=== PATIENT | male | born 1995 | race Caucasian/White ===

== ENCOUNTER 2017-09-04 20:36 | Emergency (ER) | payer BC, OTHER ==
[~2017-09-04] VITALS: Ht 190.5 cm; Wt 127.9 kg
[2017-09-04 20:57] LABS: BASOPHILS % (AUTO) 0 % (0-10); EOSINOPHILS % (AUTO) 0 % (0-10); HEMATOCRIT 43 % (40-54); HEMOGLOBIN 15.3 G/DL (13.3-17.7); LYMPHOCYTES # (AUTO) 2.2 X 10^3 (1.0-4.0); LYMPHOCYTES % (AUTO) 24 % (12-44); MEAN CORPUSCULAR HEMOGLOBIN 29 PG (25-34); MEAN CORPUSCULAR HGB CONC 36 G/DL (32-36); MEAN CORPUSCULAR VOLUME 82 FL (80-99); MEAN PLATELET VOLUME 10.4 FL (7.4-10.4); MONOCYTES # (AUTO) 0.6 X 10^3 (0.0-1.0); MONOCYTES % (AUTO) 7 % (0-12); NEUTROPHILS # (AUTO) 6.3 X 10^3 (1.8-7.8); NEUTROPHILS % (AUTO) 69 % (42-75); PLATELET COUNT 354 10^3/uL (130-400); RED BLOOD COUNT 5.29 10^6/uL (4.35-5.85); WHITE BLOOD COUNT 9.2 10^3/uL (4.3-11.0)
--- NOTE | 2017-09-04 21:02 | ED Neurological Problem ---
General Chief Complaint: Neurological Problems Stated Complaint: RT SIDE NUMBNESS OF FACE Nursing Triage Note: right sided facial weakness/drooping. Nursing Sepsis Screen: No Definite Risk Source: patient History of Present Illness Time seen by provider: 20:50 Initial Comments PT STATES WHEN HE WOKE UP YESTERDAY MORNING, HE HAD SOME NUMBNESS AND TINGLING TO HIS MOUTH THE DAY WENT ON, HE NOTICED HIS RIGHT EYE WOULD NOT CLOSE AND HAS HAD SOME DROPPING OF THE RIGHT SIDE OF HIS FACE SYMPTOMS CONTINUE TODAY NO PAIN STATES HE DOES NOT HAVE ANY NUMBNESS NO VISION CHANGES NO PROBLEMS SWALLOWING/EATING/CHEWING NO HEADACHE NO EAR PAIN OR SYMPTOMS NO PROBLEMS WITH ARMS/ LEGS OR ANY OTHER PART OF BODY NO FEVER OR RECENT ILLNESS/URI SYMPTOMS NO HISTORY OF SIMILAR PT IS [employer] ST[employer] Allergies and Home Medications Allergies Coded Allergies: No Known Drug Allergies (Unverified , 09/04/17) Home Medications No Active Prescriptions or Reported Meds Constitutional: no symptoms reported Eyes: See HPI, Denies Blurred Vision, Denies Pain, Denies Vision Changes Ears, Nose, Mouth, Throat: see HPI Respiratory: no symptoms reported Cardiovascular: no symptoms reported Gastrointestinal: no symptoms reported Genitourinary: no symptoms reported Musculoskeletal: no symptoms reported Skin: no symptoms reported Psychiatric/Neurological: See HPI, Denies Cognitive Dysfunction, Denies Headache, Denies Numbness, Tingling, Other (RIGHT FACIAL DROOP) Endocrine: No Symptoms Reported Hematologic/Lymphatic: No Symptoms Reported Past [id number]-Jyplvo-Crxont Hx Patient Social History Alcohol Use: Occasionally Uses Number of Drinks Today: 0 Alcohol Beverage of Choice: Beer Recreational Drug Use: No Smoking Status: Never a Smoker Type Used: Smokeless Tobacco 2nd Hand Smoke Exposure: No Recent Foreign Travel: No Contact w/Someone Who Travel: No Recent Infectious Disease Expo: No Recent Hopitalizations: No Immunizations Up To Date Tetanus Booster (TDap): Unknown PED Vaccines UTD: Yes Seasonal Allergies Seasonal Allergies: No Surgeries History of Surgeries: Yes (BILATERAL KNEE SURGERY, LEFT SHOULDER SURGERY) Surgeries: Orthopedic Respiratory History of Respiratory Disorde: No Cardiovascular History of Cardiac Disorders: No Neurological History of Neurological Disord: No Genitourinary History of Genitourinary Disor: No Gastrointestinal History of Gastrointestinal Di: No Musculoskeletal History of Musculoskeletal Dis: No Endocrine History of Endocrine Disorders: No HEENT History of HEENT Disorders: No Cancer History of Cancer: No Psychosocial History of Psychiatric Problem: No Integumentary History of Skin or Integumenta: No Blood Transfusions History of Blood Disorders: No Adverse Reaction to a Blood Tr: No Family Medical History Other HOSPITALIZED AT AGE 4 FOR SNAKEBITE Physical Exam Vital Signs Vital Sign - Last 12Hours 09/04/17 20:45 Temp 98.1 Pulse 87 Resp 16 B/P (MAP) 170/113 (132) Pulse Ox 98 O2 Delivery Room Air Capillary Refill : Less Than 3 Seconds General Appearance: WD/WN, no apparent distress HEENT: PERRL/EOMI, TMs normal, pharynx normal, other (RIGHT FACIAL DROOP, AND CANNOT COMPLETELY CLOSE RIGHT EYE, TONGUE MIDLINE) Neck: non-tender, full range of motion, supple, normal inspection, No carotid bruit Respiratory: normal breath sounds, no respiratory distress, no accessory muscle use Cardiovascular: regular rate, rhythm, no murmur Gastrointestinal: normal bowel sounds Extremities: normal range of motion, non-tender, normal inspection, no pedal edema, no calf tenderness, normal capillary refill Neurologic/Psychiatric: alert, normal mood/affect, oriented x 3, No abnormal cerebellar tests, No abnormal gait, No aphasia, No EOM palsy, facial droop ( RIGHT ), No sensory deficit Crainal Nerves: normal hearing, normal speech, PERRL Coordination/Gait: normal finger to nose, normal gait, negative Romberg's sign Motor/Sensory: no sensory deficit, no pronator drift Skin: normal color, warm/dry, No rash Progress/Results/Core Measures Results/Orders Lab Results Laboratory Tests Test 09/04/17 20:46 Range/Units White Blood Count 9.2 4.3-11.0 10^3/uL Red Blood Count 5.29 4.35-5.85 10^6/uL Hemoglobin 15.3 13.3-17.7 G/DL Hematocrit 43 40-54 % Mean Corpuscular Volume 82 80-99 FL Mean Corpuscular Hemoglobin 29 25-34 PG Mean Corpuscular Hemoglobin Concent 36 32-36 G/DL Red Cell Distribution Width 12.0 10.0-14.5 % Platelet Count 354 130-400 10^3/uL Mean Platelet Volume 10.4 7.4-10.4 FL Neutrophils (%) (Auto) 69 42-75 % Lymphocytes (%) (Auto) 24 12-44 % Monocytes (%) (Auto) 7 0-12 % Eosinophils (%) (Auto) 0 0-10 % Basophils (%) (Auto) 0 0-10 % Neutrophils # (Auto) 6.3 1.8-7.8 X 10^3 Lymphocytes # (Auto) 2.2 1.0-4.0 X 10^3 Monocytes # (Auto) 0.6 0.0-1.0 X 10^3 Eosinophils # (Auto) 0.0 0.0-0.3 10^3/uL Basophils # (Auto) 0.0 0.0-0.1 10^3/uL Sodium Level 141 135-145 MMOL/L Potassium Level 3.8 3.6-5.0 MMOL/L Chloride Level 103 98-107 MMOL/L Carbon Dioxide Level 26 21-32 MMOL/L Anion Gap 12 5-14 MMOL/L Blood Urea Nitrogen 15 7-18 MG/DL Creatinine 1.15 0.60-1.30 MG/DL Estimat Glomerular Filtration Rate > 60 BUN/Creatinine Ratio 13 Glucose Level 122 H 70-105 MG/DL Calcium Level 9.6 8.5-10.1 MG/DL Total Bilirubin 0.5 0.1-1.0 MG/DL Aspartate Amino Transf (AST/SGOT) 24 5-34 U/L Alanine Aminotransferase (ALT/SGPT) 42 0-55 U/L Alkaline Phosphatase 98 40-136 U/L Total Protein 8.3 H 6.4-8.2 GM/DL Albumin 4.8 H 3.2-4.5 GM/DL My Orders Orders - GARY LINDQUIST DO Ct Head Wo-R/O Stroke (09/04/17 20:50) Cbc With Automated Diff (09/04/17 20:50) Comprehensive Metabolic Panel (09/04/17 20:50) Erythrocyte Sedimentation Rate (09/04/17 20:50) Saline Lock/Iv-Start (09/04/17 20:56) Methylprednisolone Sod Succ (Solu-Medrol (09/04/17 21:30) Acyclovir Capsule/Tablet (Zovirax Caps (09/04/17 21:30) Vital Signs/I&O Vital Sign - Last 12Hours 09/04/17 20:45 Temp 98.1 Pulse 87 Resp 16 B/P (MAP) 170/113 (132) Pulse Ox 98 O2 Delivery Room Air Blood Pressure Mean: [address] HEAD--NO ACUTE PROCESS, PER RADIOLOGIST REPORT @ 1830 Reviewed: Reviewed by Me Departure Impression Impression: Primary Impression: Right-sided Cope's palsy Disposition: HOME, SELF-CARE Condition: Stable Departure-Patient Inst. Referrals: NATO GALVAN MD Patient Instructions: Cope's Palsy (DC) Add. Discharge Instructions: ARTIFICIAL TEARS EVERY COUPLE OF HOURS CAREFUL WITH CHEWING TO AVOID BITING YOUR TONGUE OR CHEEK FOLLOW UP WITH [facility] ON THURSDAY FOR FURTHER CARE RETURN TO ER IF SYMPTOMS WORSEN All discharge instructions reviewed with patient and/or family. Voiced understanding. Scripts Valacyclovir HCl (Valtrex) 1,000 Mg Tablet 1000 MG PO TID, #21 TAB Prov: GARY LINDQUIST DO 09/04/17 Methylprednisolone (Medrol) 4 Mg Tab.ds.pk 4 MG PO UD, #1 PKG Prov: GARY LINDQUIST DO 09/04/17 GARY LINDQUIST DO Sep 04, 2017 21:01
--- NOTE | 2017-09-04 21:06 | Diagnostic Imaging Report ---
INDICATION: Right-sided facial numbness and droop. EXAMINATION: Noncontrast brain CT was performed. FINDINGS: There were no extra-axial fluid collections. No intracranial hemorrhage. No intracranial mass or mass effect. No midline shift. The ventricles are normal in size and position. There are no focal parenchymal abnormalities in the brain. Calvarial windows are unremarkable. IMPRESSION: Negative noncontrast brain CT. Dictated by: Dictated on workstation # [id number]
[2017-09-04 21:11] LABS: ALANINE AMINOTRANSFERASE 42 U/L (0-55); ALBUMIN 4.8 GM/DL (3.2-4.5); ALKALINE PHOSPHATASE 98 U/L (40-136); BILIRUBIN,TOTAL 0.5 MG/DL (0.1-1.0); BUN/CREATININE RATIO 13; CALCIUM 9.6 MG/DL (8.5-10.1); CARBON DIOXIDE 26 MMOL/L (21-32); CHLORIDE 103 MMOL/L (98-107); CREATININE SERUM 1.15 MG/DL (0.60-1.30); GFR ESTIMATED > 60; GLUCOSE 122 MG/DL (70-105); POTASSIUM 3.8 MMOL/L (3.6-5.0); SODIUM 141 MMOL/L (135-145); TOTAL PROTEIN 8.3 GM/DL (6.4-8.2)
[2017-09-04] MEDS ORDERED: VALA10004 PO (21:28)
[2017-09-04] MEDS ORDERED: METH4TAB PO (21:28)
[2017-09-04] MEDS ORDERED: ACYCLOVIR 400 MG TABLET (ZOVIRAX) PO SCH (21:30)
[2017-09-04] MEDS ORDERED: methylPREDNISolone 125 MG (Solu-MEDROL) VIAL IVP ONE (21:30)
[2017-09-04 21:34] VITALS: BP 162/101
[2017-09-04 21:42] LABS: ERYTHROCYTE SEDIMENTATION RATE 4 MM/HR (0-15)
== END 2017-09-04 21:33 | disposition home or self-care (01) ==
LOC: ER 20:40
DX: G51.0 Bell's palsy (principal); Z98.890 Other specified postprocedural states
CPT/HCPCS: 36415; 70450; 80053; 85025; 85652